=== PATIENT | male | born 1950 | race Caucasian/White ===

== ENCOUNTER → 2017-01-16 | Outpatient (CLI) | payer OTHER, MEDICARE ==
[~2017-01-16] VITALS: Ht 190.5 cm; Wt 101.6 kg
[~2017-01-16] MED LIST: ALLOPURINOL 30300 M2 PO; ASPIR 8181 MG PO; COZAAR 50 MG TA50 M2 PO; FISH OIL 1,001000 M2 PO; IBUPROFEN 200200 M1 PO; NORVASC5 MG PO; VITAMIN D2000 UNIT PO; ZOCOR20 MG PO
--- NOTE | ~2017-01-16 | HPC ---
[facility] [place] [address] PAIN MANAGEMENT CONSULTATION Name: EMERY HART JR Room #: REG [facility].#: [id number] Admission: 01/16/17 Attend Phys: Stanley Cool DO Discharge: Date of : 48 Report #: [id number] THIS REPORT FOR: //name// CC: PARRIS Hernandez DATE OF SERVICE: 01/16/2017 REFERRING PHYSICIAN: Dr. Iban Dumont. PRIMARY CARE PHYSICIAN: Dr. Iban Hernandez. CHIEF COMPLAINT: Low back pain, right lower extremity pain or paresthesias. HISTORY OF PRESENT ILLNESS: As you know, patient is a very pleasant 66-year-old male who was originally followed by [facility] at our [facility] facility. The patient has been lost followup visit since 07/2014. He returns today stating that he has had a slow and progressive recurrence of pain involving low back and right lower extremities. He has been experiencing pain for about a week now. He has tried conservative treatment, but this has been ineffective. He returns today stating pain is sharp with some numbness and tingling. He requested to undergo next in the series of epidural injections. He describes no changes in his medical history. MEDICATIONS: Unchanged. LABORATORY DATA: He has had no injury or trauma that may have led to recurrence of pain. ALLERGIES: No known drug allergies. CURRENT MEDICATIONS: Ibuprofen 200 mg every 6 hours, cholecalciferol 2000 units per day, omega 3 fish oil 1000 mg a day, aspirin 81 mg per day, losartan 50 mg per day, allopurinol 300 mg once a day, simvastatin 20 mg per day, and amlodipine 5 mg per day. SOCIAL HISTORY: The patient denies tobacco, alcohol or IV or illicit drug use. He is employed. He is working, not receiving workmen's compensation, unaccompanied today. REVIEW OF SYSTEMS: Positive for low back pain, right lower extremity pain and paresthesias, hypertension, dyslipidemia, and gout. All other review of systems negative per 12-point review of systems other than those listed in history of present illness. [facility] [address] [place] [address] PAIN MANAGEMENT CONSULTATION Name: EMERY HART Room #: REG [facility]#: [id number] Admission: 01/16/17 Attend Phys: Stanley Cool DO Discharge: Date of : 48 Report #: [id number] IMAGING: No new imaging available. PHYSICAL EXAMINATION: VITAL SIGNS: Blood pressure 146/73, pulse 62, respiratory rate 18 and unlabored. The patient is 97% on room air. Height 6 feet 3 inches tall, weight 224 pounds, BMI calculated 28. GENERAL: Well-developed, well-nourished, well-hydrated, 66-year-old male. He appears his stated age. He is placing current pain score at around 4-8/10. HEENT: Normocephalic, atraumatic. Pupils equal, round and reactive to light. Extraocular muscles are intact. Sclerae nonicteric without injection. NEUROLOGIC: Cranial nerves 2 through 12 grossly intact. Speech remains fluent. The patient deemed an excellent historian. LUNGS: Clear. No wheeze, rhonchi or rales. CARDIOVASCULAR: Regular. No appreciable gallop or rub. ABDOMEN: Soft, nontender, nondistended, normal active bowel sounds. EXTREMITIES: Show no clubbing, no cyanosis, no edema. MUSCULOSKELETAL: Lower extremity strength appears equal and symmetrical 5/5, intact to light touch from L1 through S2 dermatomes. Deep tendon reflexes are symmetrical at patella and Achilles pink. Ankle clonus negative. Babinski is negative. Gait slightly antalgic favoring right lower extremity over left, stance is normal. Seated straight leg raising negative. Supine straight leg raising positive on the right. ASSESSMENT: 1. Symptomatic lumbar radiculopathy. 2. Displacement of lumbar intervertebral disk with radiculopathy. 3. Lumbosacral spondylosis with radiculopathy. 4. Lumbar degeneration. 5. Post-laminectomy syndrome. 6. Chronic intractable pain. PLAN: 1. The patient returns today in followup visit with recurrence of low back pain, lower extremity pain and paresthesia. The patient has been treated well with epidural injections, the most recent epidural injection was 07/2014. He had been doing well and returned to all activities of daily living after that injection and has been living his normal life until just recently where he began to experience increasing low back pain and right lower extremity pain for which he returns today. The patient denies injury or trauma that may have led to symptom recurrence. He has returned today requesting to undergo epidural injection in hopes of improving pain further. The patient has been advised the risks and benefits of the procedure. These risks include but are not necessarily limited to bleeding, bruising, infection, worsening pain, no relief of pain, also risk of temporary or permanent muscle weakness, temporary or permanent nerve damage, possible paralysis and . The patient states [address] [address] PAIN MANAGEMENT CONSULTATION Name: EMERY HART JR Room #: REG [facility]#: [id number] Admission: 01/16/17 Attend Phys: Stanley Cool DO Discharge: Date of : 48 Report #: [id number] understood and wished to proceed. 2. No medication changes were made at today's visit, the patient to continue current medical therapy as previously prescribed. 3. The patient to return to our clinic on an as needed basis for possible repeat epidural injection. PROCEDURE NOTE DESCRIPTION OF PROCEDURE: L5-S1 right paramedian epidural steroid injection under fluoroscopic guidance. This is the first procedure of the second series that the patient is undergoing. After obtaining written consent, the patient was taken back to the fluoroscopy suite, placed in a prone position with pillow under the abdomen to decrease lumbar lordosis. The skin overlying the lumbosacral area was then prepped and draped in aseptic fashion. The L5-S1 vertebral interspace was then identified by AP fluoroscopy. The skin and subcutaneous tissue overlying the target site of injection was anesthetized with 3 mL 1% lidocaine. A(20-guage) 3-1/2 inch Tuohy needle was then advanced under fluoroscopic guidance towards the epidural space using a right paramedian approach. The epidural space was identified using loss of resistance to air technique. After negative aspiration for heme or cerebrospinal fluid, a total of 1 mL of Omnipaque was injected. A lumbar epidurogram was confirmed using both AP and lateral fluoroscopy. After negative aspiration for heme or cerebrospinal fluid, 5 mL of a solution containing 2 mL 40 mg per mL, 80 mg total triamcinolone, 3 mL lidocaine 1% was injected in increments. Contrast spread was noted posterior epidural space. The needle was then retracted approximately half way and needle tract flushed with 1 mL of 1% lidocaine. Needle was then removed. There were no apparent sensory or motor deficits in the lower extremity following the procedure. A sterile bandage was placed over the injection site. The heart rate, pulse, oximetry and blood pressure were continuously monitored after the procedure. There were no apparent complications. The patient tolerated the procedure well and was carefully escorted to the recovery room in stable condition. There were no apparent complications. After meeting discharge criteria, the patient was then discharged home. By: 0713 0909 Stanley Cool DO /nt
[2017-01-16 13:34] VITALS: BP 146/73
== END | disposition home or self-care (01) ==
LOC: PAIN 06:39
DX: M54.16 Radiculopathy, lumbar region (principal); M51.16 Intervertebral disc disorders with radiculopathy, lumbar region; M47.817 Spondylosis without myelopathy or radiculopathy, lumbosacral region; M51.36 Other intervertebral disc degeneration, lumbar region; M96.1 Postlaminectomy syndrome, not elsewhere classified

== ENCOUNTER → 2017-03-06 | Outpatient (CLI) | payer OTHER, MEDICARE ==
[~2017-03-06] VITALS: Ht 190.5 cm; Wt 98.4 kg
--- NOTE | ~2017-03-06 | HPC ---
[facility] [address] [place] [address] PAIN MANAGEMENT CONSULTATION Name: EMERY HART JR Room #: REG [facility]#: [id number] Admission: 03/06/17 Attend Phys: Stanley Cool DO Discharge: Date of : 48 Report #: [id number] THIS REPORT FOR: //name// CC: PARRIS Hernandez MD DATE OF SERVICE: 03/06/2017 REFERRING PHYSICIAN: Parris Dumont M.D. CHIEF COMPLAINT: Low back pain, right lower extremity pain with paresthesias. HISTORY OF PRESENT ILLNESS: As you know, the patient is a very pleasant 66-year-old male who returns to our clinic here at [facility] for next in a series of epidural injections. He reports pain level today of 1-2/10. His last epidural injection reportedly provided 70% improvement in overall pain. He returns for the next in a series of epidural injections. He is denying new injury or new trauma that may have led to progression of symptoms. ALLERGIES: NO KNOWN DRUG ALLERGIES. CURRENT MEDICATIONS: Amlodipine, simvastatin, allopurinol, losartan, aspirin, omega 3 fish oil, ibuprofen. SOCIAL HISTORY: The patient denies tobacco, alcohol, IV or illicit drug use. He is employed, he is working, not receiving workmen's compensation, unaccompanied today. PHYSICAL EXAMINATION: VITAL SIGNS: Blood pressure 156/71, pulse 48, respiratory rate 14, unlabored. The patient 99% on room air. Height 5 feet 3 inches tall, weight 217 pounds, BMI calculated at 27.1. GENERAL: Well developed, well nourished, well-hydrated, 66-year-old male. He appears his stated age. He is in no acute distress, awake, alert and oriented x 3. Current pain score 1-2/10. HEENT: Normocephalic, atraumatic. Pupils equal, round, reactive to light. Extraocular muscles are intact. Sclerae nonicteric without injection. NEUROLOGIC: Cranial nerves 2-12 grossly intact. Speech is fluent. EXTREMITIES: Show no clubbing, no cyanosis, no edema. MUSCULOSKELETAL: Lower extremity strength is symmetrical 5/5. Deep tendon reflexes are symmetrical at patella and Achilles. Ankle clonus negative. Babinski is negative. Seated straight leg raising negative. Supine straight leg raising positive on the right. Muscle bulk and tone equal and symmetrical in lower extremities. [address] [address] PAIN MANAGEMENT CONSULTATION Name: EMERY HART Danay [id number] Admission: 03/06/17 Attend Phys: Stanley Cool DO Discharge: Date of : 48 Report #: [id number] ASSESSMENT: 1. Symptomatic lumbar radiculopathy. 2. Displacement of lumbar intervertebral disk with radiculopathy. 3. Lumbosacral spondylosis with radiculopathy. 4. Lumbar facet arthropathy. 5. Lumbar degeneration. 6. Chronic intractable pain. PLAN: 1. The patient returns today in followup visit for the next in a series of epidural injections under fluoroscopic guidance. The patient reports approximately 70% improvement in overall pain with the previous epidural injection. He is hopeful to see similar improvement today. The patient has been advised risks and benefits of this procedure. These risks include, but are not necessarily limited to bleeding, bruising, infection, worsening pain, no relief of pain, also risk of temporary or permanent muscle weakness, temporary or permanent nerve damage, possible paralysis and . The patient states understood and wished to proceed. 2. No medication changes were made at today's visit, the patient to continue current medical therapy as previously prescribed. 3. The patient to return to our clinic on an as needed basis for next in the series of epidural injections. PROCEDURE NOTE DESCRIPTION OF PROCEDURE: L5-S1 right paramedian epidural steroid injection under fluoroscopic guidance. This is the second procedure of the second series that the patient is undergoing. After obtaining written consent, the patient was taken back to the fluoroscopy suite, placed in a prone position with pillow under the abdomen to decrease lumbar lordosis. The skin overlying the lumbosacral area was then prepped and draped in aseptic fashion. The L5-S1 vertebral interspace was then identified by AP fluoroscopy. The skin and subcutaneous tissue overlying the target site of injection was anesthetized with 3 mL 1% lidocaine. A 20-guage 3-1/2 inch Tuohy needle was then advanced under fluoroscopic guidance towards the epidural space using a right paramedian approach. The epidural space was identified using loss of resistance to air technique. After negative aspiration for heme or cerebrospinal fluid, a total of 1 mL of Omnipaque was injected. A lumbar epidurogram was confirmed using both AP and lateral fluoroscopy. After negative aspiration for heme or cerebrospinal fluid, 5 mL of a solution containing 2 mL 40 mg per mL, 80 mg total triamcinolone, 3 mL of [address] [address] PAIN MANAGEMENT CONSULTATION Name: EMERY HART JR Room #: REG [facility]#: [id number] Admission: 03/06/17 Attend Phys: Stanley Cool DO Discharge: Date of : 48 Report #: [id number] lidocaine 1% was injected in increments. Contrast spread was noted posterior epidural space. The needle was then retracted approximately half way and needle tract flushed with 1 mL of 1% lidocaine. Needle was then removed. There were no apparent sensory or motor deficits in the lower extremity following the procedure. A sterile bandage was placed over the injection site. The heart rate, pulse, oximetry and blood pressure were continuously monitored after the procedure. There were no apparent complications. The patient tolerated the procedure well and was carefully escorted to the recovery room in stable condition. There were no apparent complications. After meeting discharge criteria, the patient was then discharged home. <ELECTRONICALLY SIGNED> By: Stanley Cool DO 03/07/17 1158 0719 1147 Stanley Cool DO /nt
[2017-03-06 10:31] VITALS: BP 156/71
== END | disposition home or self-care (01) ==
LOC: PAIN 01-30 14:44
DX: M54.16 Radiculopathy, lumbar region (principal); M51.16 Intervertebral disc disorders with radiculopathy, lumbar region; M51.36 Other intervertebral disc degeneration, lumbar region; G89.29 Other chronic pain

== ENCOUNTER 2019-02-25 10:41 | Inpatient (IN) | payer OTHER, MEDICARE ==
[~2019-02-25] VITALS: Ht 190.5 cm; Wt 96.6 kg
[2019-02-25 11:32] LABS: HEMATOCRIT 43.8 % (42.0-52.0); HEMOGLOBIN 14.5 gm/dL (14.0-18.0); MCH 28.9 pg (26.0-34.0); MCV 87.6 fL (80.0-100.0); RBC 5.01 mil/uL (4.50-6.00); RDW 13.9 % (10.5-14.5)
[2019-02-25 11:35] VITALS: BP 159/59
[2019-02-25 11:36] LABS: CALCIUM 9.5 mg/dL (8.5-10.1); CREATININE 1.3 mg/dL (0.7-1.3); POTASSIUM 4.1 mmol/L (3.5-5.1)
[2019-02-25] MEDS ORDERED: CRESTOR20 MG PO (11:50)
[2019-02-25 16:50] VITALS: BP 99/47
--- NOTE | 2019-02-25 17:14 | EKG ---
[address] [place] [address] ELECTROCARDIOGRAM REPORT Name: EMERY HART Room #: 211-P ADM IN M.R.#: [id number] ������������������ Admission: 02/25/19 ������������������ Attend Phys: Zoran Cruz MD, Discharge: ������������������ Date of : 48 Report #: [id number] ����������������������������������������������������������������� [id number] THIS REPORT FOR: //name// [facility] Test Date: 2019-02-25 Test Time: 11:26:10 Pat Name: EMERY HART Department: Room: 211 Gender: M Guide Escort: Becky BLANCO : 1950 Requested By: Zoran Cruz Order Number: [id number] MD: Christoph Rose Measurements Intervals [place] Rate: 45 P: 10 CA: 191 QRS: 1 QRSD: 95 T: 32 QT: 467 QTc: 404 Interpretive Statements Sinus bradycardia Otherwise normal tracing Compared to ECG 11/15/1995 06:41:00 No significant changes Electronically Signed On 02-25-2019 17:14:26 CDT by Christoph Rose [email or web address] ��������������������������������������������� <ELECTRONICALLY SIGNED> ���������������������������������������� By: Christoph Rose MD, [facility] ��������������������������������������������� 02/25/19 1714 25 25 Christoph Rose MD, [facility] /EPI
[2019-02-25 17:20] VITALS: BP 104/47
--- NOTE | 2019-02-25 17:22 | NUR ---
PATIENT ARRIVED TO FLOOR FROM [facility], ALERT AND ORIENTED, RIGHT GROIN INCISION CLEAR, DRY, INTACT, NO HEMATOMA. PEDAL PULSE 1+. BED AT 30 DEGREES. NS INFUSING AT 125. NO COMPLAINTS OF PAIN. AFTER 2 HOUR OBSERVATION, PATIENT WILL BE DISCHARGED TO HOME
--- NOTE | 2019-02-25 17:27 | CATHLAB ---
[facility] [place] [address] INVASIVE PROCEDURE REPORT Name: EMERY HART Room #: 211-P [facility] IN ..#: [id number] ������������� Admission: 02/25/19 ������������� Attend Phys: Zoran Cruz, Discharge: ��� ������������� ��� Date of : 48 Date of Service: 02/25/19 1727 �� Report #: [id number] �������� ��������������������������������������������[id number] THIS REPORT FOR: //name// APPROVED REPORT Study performed: 02/25/2019 12:24:03 Patient Details The patient is a 68 year-old male Event Personnel Zoran Cruz Licsw, Floridalma Raza RN RN, Betty Flores RN RN, Keiko Husain RTR, KRYSTIN Hallman, Aimee Pierre Monitor, Mary Matthews Monitor Procedures Performed Left Heart Cath w/or w/o Coronaries [id number] [facility] Indication Chest pain Procedure Narrative The Right Groin^ was infiltrated with 1% Lidocaine subcutaneous anesthesia. A 6F 11CM BRITE-TIP sheath was inserted into the RFA^. Coronary angiography was performed using coronary diagnostic catheters. The right coronary system was accessed and visualized with a JR4 catheter. The left coronary system was accessed and visualized with a JL4 catheter. The left ventricle was accessed and visualized with a PIGTAIL catheter. Left ventriculogram was performed in [place] projection. Closure device was deployed with a Fr 6F Fish closure. The patient tolerated the procedure well and there were no complications associated with the procedure. There was no hematoma. Intraoperative Conscious Sedation Sedation start time: 1249 Case end Time: 1310 Fentanyl 50 mcg Versed 1 mg Fluoro Time: 32.79 minutes Dose: DAP 17666.10 cGycm2 1305 mGy Contrast Type and Amount: Omnipaque 85 ml Hemodynamics The aortic pressure is 173/64 mmHg with a mean of mmHg. The left [facility] [address] [place] [address] INVASIVE PROCEDURE REPORT Name: EMERY HART Room #: 211-P [facility] IN M.R.#: [id number] ������������� Admission: 02/25/19 ������������� Attend Phys: Zoran Cruz, Discharge: ��� ������������� ��� Date of : 48 Date of Service: 02/25/19 1727 �� Report #: [id number] �������� ��������������������������������������������[id number] ventricular pressure is 147/14 mmHg with a mean of mmHg. The left ventricular end diastolic pressure is 18 mmHg. PCI Technique Lesion Percutaneous coronary intervention was performed on the Superficial Femoral. Conclusion #1 normal left ventricular size and systolic function EF 60% #2 there is an eccentric proximal LAD lesion in the 50% range giving rise to otherwise widely patent LAD which extends around the apex. #3 circumflex OM is nondominant with mild disease #4 left main is moderate in size and free of significant disease mild calcification #5 tortuous but dominant right coronary artery appears be widely patent PDA well preserved Recommendations and plan continue aggressive risk factor modification. Patient is scheduled for peripheral intervention to follow this procedure. We'll follow proximal LAD lesion. No indication for intervention coronary-boyd. ��������������������������������������������� <ELECTRONICALLY SIGNED> ���������������������������������������� By: Zoran Cruz MD, [facility] ��������������������������������������������� 02/25/191726 26 26 Zoran Cruz MD, FACC /INF
[2019-02-25 17:50] VITALS: BP 121/54
[2019-02-25 18:20] VITALS: BP 113/57
--- NOTE | 2019-02-25 19:08 | NUR ---
PATIENT ALERT AND ORIENTED, IV DC'D, RIGHT GROIN DRESSING CLEAN, DRY AND INTACT. PATIENT AMBULATED IN ROOM, NO C/O OF DIZZINESS. PATIENT DISCHARGED AN D GIVEN POST ANGIOGRAM DISCHARGE INSTRUCTIONS, PATIENT STATED UNDERSTANDING
== END 2019-02-25 19:13 | disposition home or self-care (01) | DRG 272 ==
LOC: CATH 10:41 → 2N 16:45 → ENTRNSPT 18:44 → 2N 19:13
PROVIDERS: ADMIT Internal Medicine Cardiovascular Disease
DX: I73.9 Peripheral vascular disease, unspecified (principal)
CPT/HCPCS: 10081

== ENCOUNTER → 2019-03-17 | Outpatient (CLI) | payer OTHER, MEDICARE ==
[~2019-03-17] VITALS: Ht 190.5 cm; Wt 95.3 kg
[~2019-03-17] MED LIST changes: +CRESTOR20 MG PO; +FUROSEMIDE 20 M20 M1 PO
[2019-03-17 08:15] VITALS: BP 148/59
== END | disposition home or self-care (01) ==
LOC: SPEC 07:08
DX: I70.211 Atherosclerosis of native arteries of extremities with intermittent claudication, right leg (principal); I10 Essential (primary) hypertension; E78.5 Hyperlipidemia, unspecified; E11.9 Type 2 diabetes mellitus without complications; M10.9 Gout, unspecified; Z79.4 Long term (current) use of insulin; Z86.73 Personal history of transient ischemic attack (TIA), and cerebral infarction without residual deficits; Z87.891 Personal history of nicotine dependence; Z98.890 Other specified postprocedural states; Z96.652 Presence of left artificial knee joint; Z79.899 Other long term (current) drug therapy; Z85.3 Personal history of malignant neoplasm of breast

== ENCOUNTER → 2019-12-25 | Outpatient (CLI) | payer OTHER, MEDICARE | LOC: SJCVCIMAG 08:21 | DX: I65.23 Occlusion and stenosis of bilateral carotid arteries (principal); I73.9 Peripheral vascular disease, unspecified; I10 Essential (primary) hypertension; I25.10 Atherosclerotic heart disease of native coronary artery without angina pectoris; E78.00 Pure hypercholesterolemia, unspecified; Z96.652 Presence of left artificial knee joint; Z79.899 Other long term (current) drug therapy ==

== ENCOUNTER → 2020-06-01 | Outpatient (CLI) | payer OTHER, MEDICARE | LOC: SJCVCIMAG 13:17 | PROVIDERS: ATTEND Nuclear Medicine Nuclear Cardiology | DX: I70.201 Unspecified atherosclerosis of native arteries of extremities, right leg (principal); I25.10 Atherosclerotic heart disease of native coronary artery without angina pectoris; I10 Essential (primary) hypertension; I69.30 Unspecified sequelae of cerebral infarction; E78.00 Pure hypercholesterolemia, unspecified; Z79.899 Other long term (current) drug therapy; Z87.891 Personal history of nicotine dependence ==

== ENCOUNTER → 2020-06-09 | Outpatient (CLI) | payer OTHER, MEDICARE | LOC: SJCVC 11:50 | PROVIDERS: ATTEND Internal Medicine Cardiovascular Disease | DX: R94.31 Abnormal electrocardiogram [ECG] [EKG] (principal); R00.1 Bradycardia, unspecified; E78.00 Pure hypercholesterolemia, unspecified; I73.9 Peripheral vascular disease, unspecified; I10 Essential (primary) hypertension; E11.9 Type 2 diabetes mellitus without complications; I69.30 Unspecified sequelae of cerebral infarction; Z79.899 Other long term (current) drug therapy; Z87.891 Personal history of nicotine dependence ==

== ENCOUNTER → 2020-06-21 | Outpatient (CLI) | payer OTHER, MEDICARE | LOC: SJCVCIMAG 09:41 | PROVIDERS: ATTEND Nuclear Medicine Nuclear Cardiology | DX: I35.1 Nonrheumatic aortic (valve) insufficiency (principal); R00.1 Bradycardia, unspecified; I10 Essential (primary) hypertension; E78.5 Hyperlipidemia, unspecified; E11.9 Type 2 diabetes mellitus without complications ==

== ENCOUNTER → 2020-09-28 | Outpatient (CLI) | payer OTHER, MEDICARE | LOC: SJCVCIMAG 09:59 | PROVIDERS: ATTEND Nuclear Medicine Nuclear Cardiology | DX: I65.23 Occlusion and stenosis of bilateral carotid arteries (principal); I73.9 Peripheral vascular disease, unspecified; M79.604 Pain in right leg; M79.605 Pain in left leg; I77.9 Disorder of arteries and arterioles, unspecified; I25.10 Atherosclerotic heart disease of native coronary artery without angina pectoris; I10 Essential (primary) hypertension; E78.00 Pure hypercholesterolemia, unspecified; Z95.828 Presence of other vascular implants and grafts; Z79.82 Long term (current) use of aspirin; Z79.899 Other long term (current) drug therapy; Z87.891 Personal history of nicotine dependence ==

== ENCOUNTER → 2021-02-15 | Outpatient (CLI) | payer OTHER, MEDICARE | LOC: SJCVCIMAG 08:31 | PROVIDERS: ATTEND Internal Medicine Cardiovascular Disease | DX: I11.9 Hypertensive heart disease without heart failure (principal); I25.10 Atherosclerotic heart disease of native coronary artery without angina pectoris; E78.5 Hyperlipidemia, unspecified ==

== ENCOUNTER → 2021-02-22 | Outpatient (CLI) | payer OTHER, MEDICARE | LOC: SJCVCIMAG 08:31 | PROVIDERS: ATTEND Nuclear Medicine Nuclear Cardiology | DX: T82.856A Stenosis of peripheral vascular stent, initial encounter (principal); I73.9 Peripheral vascular disease, unspecified; I77.9 Disorder of arteries and arterioles, unspecified; I25.10 Atherosclerotic heart disease of native coronary artery without angina pectoris; I10 Essential (primary) hypertension; E78.00 Pure hypercholesterolemia, unspecified; M10.9 Gout, unspecified; E78.5 Hyperlipidemia, unspecified; M54.12 Radiculopathy, cervical region; L40.9 Psoriasis, unspecified; Z86.73 Personal history of transient ischemic attack (TIA), and cerebral infarction without residual deficits; Z85.46 Personal history of malignant neoplasm of prostate; Z87.891 Personal history of nicotine dependence; Z79.82 Long term (current) use of aspirin; Z79.899 Other long term (current) drug therapy; X58.XXXA Exposure to other specified factors, initial encounter; Y93.89 Activity, other specified; Y92.89 Other specified places as the place of occurrence of the external cause; Y99.8 Other external cause status ==

== ENCOUNTER → 2021-03-09 | Outpatient (CLI) | payer OTHER, MEDICARE | LOC: SJCVC 12:20 | PROVIDERS: ATTEND Internal Medicine Cardiovascular Disease | DX: I25.10 Atherosclerotic heart disease of native coronary artery without angina pectoris (principal); I77.9 Disorder of arteries and arterioles, unspecified; I73.9 Peripheral vascular disease, unspecified; I10 Essential (primary) hypertension; E78.00 Pure hypercholesterolemia, unspecified; M54.12 Radiculopathy, cervical region; M10.9 Gout, unspecified; E78.5 Hyperlipidemia, unspecified; L40.9 Psoriasis, unspecified; Z85.46 Personal history of malignant neoplasm of prostate; Z86.73 Personal history of transient ischemic attack (TIA), and cerebral infarction without residual deficits; Z87.891 Personal history of nicotine dependence; Z72.89 Other problems related to lifestyle; Z79.899 Other long term (current) drug therapy ==

== ENCOUNTER → 2021-09-20 | Outpatient (CLI) | payer OTHER, MEDICARE ==
[~2021-09-20] MED LIST changes: +CHLORTHALIDONE25 MG PO; +JARDIANCE10 MG PO; +PLAVIX 75 MG TA75 MG PO; +VASCEPA1 GM PO; +XARELTO2.5 MG PO
== END ==
LOC: SJCVCIMAG 10:32
PROVIDERS: ATTEND Nuclear Medicine Nuclear Cardiology
DX: I65.23 Occlusion and stenosis of bilateral carotid arteries (principal); I70.203 Unspecified atherosclerosis of native arteries of extremities, bilateral legs; I77.9 Disorder of arteries and arterioles, unspecified; E78.00 Pure hypercholesterolemia, unspecified; I25.10 Atherosclerotic heart disease of native coronary artery without angina pectoris; I10 Essential (primary) hypertension; E78.5 Hyperlipidemia, unspecified; R94.39 Abnormal result of other cardiovascular function study; I69.30 Unspecified sequelae of cerebral infarction; R06.00 Dyspnea, unspecified; Z82.49 Family history of ischemic heart disease and other diseases of the circulatory system; Z72.89 Other problems related to lifestyle; Z79.899 Other long term (current) drug therapy; Z87.891 Personal history of nicotine dependence

== ENCOUNTER → 2021-10-04 | Outpatient (CLI) | payer OTHER, MEDICARE ==
[~2021-10-04] VITALS: Ht 190.5 cm; Wt 92.5 kg
[2021-10-04 09:06] VITALS: BP 133/54
[2021-10-04 09:21] LABS: HEMATOCRIT 45.9 % (42.0-52.0); HEMOGLOBIN 14.9 gm/dL (14.0-18.0); MCHC 32.4 g/dL (28.0-37.0); MCV 89.6 fL (80.0-100.0); RBC 5.12 mil/uL (4.50-6.00); WBC 6.5 thou/uL (4.0-11.0)
[2021-10-04 09:24] LABS: CALCIUM 9.2 mg/dL (8.5-10.1); CREATININE 1.5 mg/dL (0.7-1.3)
--- NOTE | 2021-10-04 13:25 | EKG ---
[place] [address] [facility] [place] [address] ELECTROCARDIOGRAM REPORT Name: EMERY HART Room #: REG CLI [facility]#: [id number] Admission: 10/04/21 Attend Phys: Nain Armstrong MD Discharge: Date of : 48 Report #: [id number] [facility] Test Date: 2021-10-04 Test Time: 08:48:42 Pat Name: EMERY HART Department: Room: Gender: Business Analytics Director: [facility] : 1950 Requested By: Nain Armstrong Order Number: [id number] MD: Imer Hicks Measurements Intervals [place] Rate: 44 P: 20 SC: 186 QRS: 1 QRSD: 87 T: 31 QT: 462 QTc: 396 Interpretive Statements Sinus bradycardia RSR' in V1 or V2, probably normal variant Compared to ECG 02/25/2019 11:26:10 RSR' in V1 or V2 now present Electronically Signed On 10-04-2021 13:24:57 TANK CALIBRATOR by Imer Hicks [email or web address] <ELECTRONICALLY SIGNED> By: Imer Hicks MD, [facility] 10/04/21 1324 7 7 Imer Hicks MD, FACC /EPI
--- NOTE | 2021-10-05 08:41 | CATHLAB ---
[facility] [address] [place] [address] INVASIVE PROCEDURE REPORT Name: EMERY HART Room #: REG AICHA [place].#: [id number] Admission: 10/04/21 Attend Phys: Nain Armstrong MD Discharge: Date of : 48 Report #: [id number] THIS REPORT FOR: cc: Stephen Santos MD, John L. MD Mancuso, Gerald M. MD [facility] ~ APPROVED REPORT Study performed: 10/04/2021 11:39:35 Patient Details Patient Status: Out-Patient Room #: The patient is a 71 year-old male Event Personnel Zoran Cruz Juvenile Correctional Officer, Anya Martin RTR Monitor, Keiko Husain RTR, Samuel Stinson Jessica RN digital strategy manager Performed Left Heart Cath w/or w/o Coronaries [id number] [facility] Hemostasis w/ Mynx 21346 Initial Mod Sed Same Phys/QHP Gr5y 620866 36527 Mod Sed Same Phys/QHP Ea [id number] Procedure Narrative The was infiltrated with 1% Lidocaine subcutaneous anesthesia. A SHEATH BRITE-TIP 6F X 11CM ([id number]) sheath was inserted into the LFA^. Coronary angiography was performed using coronary diagnostic catheters. The right coronary system was accessed and visualized with a JR4 catheter. The left coronary system was accessed and visualized with a JL4 catheter. The left ventricle was accessed and visualized with a STRAIGHT PIGTAIL catheter. Left ventriculogram was performed in 30 degree projection. Closure device was deployed with a Fr MYNX CONTROL 6F/7F L#[id number]. The patient tolerated the procedure well and there were no complications associated with the procedure. There was no hematoma. Intraoperative Conscious Sedation Sedation start time: 10:08 Case end Time: 12:55 Fentanyl 100 mcg Versed 2 mg Contrast, fluoro, and sedation are all combined totals of a lower extremity runoff and a heart cath. [facility] [place] [address] INVASIVE PROCEDURE REPORT Name: EMERY HART Room #: REG [facility]#: [id number] Admission: 10/04/21 Attend Phys: Nain Armstrong, Discharge: Date of : 48 Report #: [id number] Fluoro Time: 16.00 minutes Dose: DAP 82815.40 cGycm2 969 mGy Contrast Type and Amount: Visipaque 134 ml Hemodynamics The aortic pressure is 137/57 mmHg with a mean of 85 mmHg. The left ventricular pressure is 143/-7 mmHg with a mean of mmHg. The left ventricular end diastolic pressure is 14 mmHg. PCI Technique Lesion Percutaneous coronary intervention was performed on the Superficial Femoral. Conclusion #1 Normal left ventricular size and systolic function EF 60%. #2 left main with mild calcification widely patent giving rise to LAD and circumflex. #3 the LAD has an eccentric proximal lesion 60% range with otherwise well-preserved vessel to the apex. Does not appear to be flow-limiting. #4 circumflex OM nondominant with minimal disease. #5 dominant right coronary artery is an eccentric ostial lesion of 40% otherwise well-preserved vessel giving rise to PDA THAD well preserved. Recommendations and plan: Continue aggressive risk factor modification. No indication for coronary intervention. Will follow proximal LAD lesion. <ELECTRONICALLY SIGNED> By: Zoran Cruz MD, FACC 10/05/21840 0 0 Zoran Cruz MD, FACC /INF
== END | disposition home or self-care (01) ==
LOC: CATH 07:56
PROVIDERS: ATTEND Nuclear Medicine Nuclear Cardiology
DX: I25.10 Atherosclerotic heart disease of native coronary artery without angina pectoris (principal); I70.211 Atherosclerosis of native arteries of extremities with intermittent claudication, right leg; I70.1 Atherosclerosis of renal artery; M79.604 Pain in right leg; M79.605 Pain in left leg; I10 Essential (primary) hypertension; E11.9 Type 2 diabetes mellitus without complications; E78.5 Hyperlipidemia, unspecified; M10.9 Gout, unspecified; Z98.890 Other specified postprocedural states; Z79.899 Other long term (current) drug therapy; Z86.73 Personal history of transient ischemic attack (TIA), and cerebral infarction without residual deficits; Z87.891 Personal history of nicotine dependence; Z85.3 Personal history of malignant neoplasm of breast; Z96.652 Presence of left artificial knee joint

== ENCOUNTER → 2021-10-13 | Outpatient (CLI) | payer OTHER, MEDICARE ==
[~2021-10-13] VITALS: Ht 190.5 cm; Wt 92.0 kg
[~2021-10-13] MED LIST changes: +ROSUVASTATIN CA20 MG
[2021-10-13 07:46] VITALS: BP 116/73
[2021-10-13 08:35] LABS: CALCIUM 9.1 mg/dL (8.5-10.1); CREATININE 1.6 mg/dL (0.7-1.3); POTASSIUM 4.2 mmol/L (3.5-5.1)
== END | disposition home or self-care (01) ==
LOC: CATH 06:45
PROVIDERS: ATTEND Nuclear Medicine Nuclear Cardiology
DX: I70.212 Atherosclerosis of native arteries of extremities with intermittent claudication, left leg (principal); T82.856A Stenosis of peripheral vascular stent, initial encounter; I15.0 Renovascular hypertension; I70.1 Atherosclerosis of renal artery; M79.605 Pain in left leg; M79.604 Pain in right leg; I10 Essential (primary) hypertension; E11.9 Type 2 diabetes mellitus without complications; E78.5 Hyperlipidemia, unspecified; I25.10 Atherosclerotic heart disease of native coronary artery without angina pectoris; M10.9 Gout, unspecified; Z98.890 Other specified postprocedural states; Z79.899 Other long term (current) drug therapy; Z86.73 Personal history of transient ischemic attack (TIA), and cerebral infarction without residual deficits; Z96.652 Presence of left artificial knee joint; Z85.3 Personal history of malignant neoplasm of breast; Y83.8 Other surgical procedures as the cause of abnormal reaction of the patient, or of later complication, without mention of misadventure at the time of the procedure